=== PATIENT | male | born 1955 | race Caucasian/White ===

== ENCOUNTER 2022-07-23 16:02 | Emergency (ER) | payer MEDICARE, BC ==
[2022-07-23] MEDS ORDERED: Sodium Chloride 0.9% 10 ML Syringe FLUSH PRN (16:13)
[2022-07-23 16:16] VITALS: BP 140/80; PULSE 82
[2022-07-23 17:03] LABS: ANION GAP 12.3 mEq/L (7-13); CHLORIDE,CL 103 mmol/L (98-107); PTT,PARTIAL THROMBOPLSTIN TIME 29.1 SEC (22.0-34.0); SODIUM,NA 142 mmol/L (136-145)
[2022-07-23 17:06] LABS: ESTIMATED GFR 50 mL/min (>=60)
[2022-07-23] MEDS ORDERED: HYDROmorphone 1 MG/ML Syringe IVPUSH ONE (17:41)
== END 2022-07-23 18:47 | disposition home or self-care (01) ==
LOC: DL.ED 16:02
DX: M25.561 Pain in right knee (principal); M25.461 Effusion, right knee; E78.00 Pure hypercholesterolemia, unspecified; I10 Essential (primary) hypertension; Z79.01 Long term (current) use of anticoagulants; Z79.82 Long term (current) use of aspirin
CPT/HCPCS: 36415; 73560-RT; 80053; 83605; 83735; 83880; 84145; 84550; 85025; 85379; 85610; 85651; 85730; 86140; 87040; 96374; 99284; 99284-25; J1170; J3490